=== PATIENT | male | born 1965 | race Hispanic/Latino ===

== ENCOUNTER 2017-12-26 13:19 | Outpatient (CLI) | payer OTHER | END 2017-12-26 13:20 | disposition home or self-care (01) | LOC: MADEKG 13:19 | PROVIDERS: ATTEND Family Medicine | DX: R07.9 Chest pain, unspecified (principal) | CPT/HCPCS: 93005; 93010 ==

== ENCOUNTER 2018-03-06 17:48 | Outpatient (CLI) | payer OTHER ==
--- NOTE | 2018-03-06 19:38 | RAD ---
LUMBAR SPINE THREE VIEWS: 03/06/18 HISTORY: 52-year-old male with history of slip and fall three weeks ago with low back pain. Extensive multilevel disc osteophytosis and facet arthrosis. No acute fracture or dislocation. No foc al bone lesion. IMPRESSION: Severe spondylosis. POS: [facility]
== END 2018-03-06 17:49 | disposition home or self-care (01) ==
LOC: MADRAD 17:48
PROVIDERS: ATTEND Family Medicine
DX: M54.5 Low back pain (principal); M47.896 Other spondylosis, lumbar region
CPT/HCPCS: 72100